=== PATIENT | female | born 1975 | race Caucasian/White ===

== ENCOUNTER 2018-04-22 10:13 | Emergency (ER) | payer OTHER ==
[~2018-04-22] VITALS: Ht 160 cm; Wt 77.1 kg
[2018-04-22] MEDS ORDERED: LEVOTHYROXINE88 MCG PO ×2 (10:24)
[2018-04-22] MEDS ORDERED: ESTRACE1 MG PO ×2 (10:25)
[2018-04-22] MEDS ORDERED: CITALOPRAM HBR40 MG PO ×2 (10:25)
[2018-04-22] MEDS ORDERED: PERCOCET 7.5-31 EACH PO ×2 (10:51)
[2018-04-23] MEDS ORDERED: NORCO 7.5-3251 EACH PO ×2 (17:22)
== END 2018-04-22 11:10 | disposition home or self-care (01) ==
LOC: ED 10:13
DX: S82.841A Displaced bimalleolar fracture of right lower leg, initial encounter for closed fracture (principal); F17.200 Nicotine dependence, unspecified, uncomplicated; E03.9 Hypothyroidism, unspecified; Z79.899 Other long term (current) drug therapy; W19.XXXA Unspecified fall, initial encounter
CPT/HCPCS: 73610; 99283

== ENCOUNTER 2018-04-24 13:35 | Day surgery (SDC) | payer OTHER ==
[~2018-04-24] VITALS: Ht 160 cm; Wt 77.1 kg
[~2018-04-24 13:35] MED LIST: CITALOPRAM HBR40 MG PO; ESTRACE1 MG PO; LEVOTHYROXINE88 MCG PO; NORCO 7.5-3251 EACH PO; PERCOCET 7.5-31 EACH PO
[2018-04-24] MEDS ORDERED: NORCO 10-325 T1 EACH PO ×2 (16:20)
--- NOTE | 2018-04-24 16:23 | NUR ---
04/24/18 1623 Nai Dan 1550 PT ARRIVED IN PACU SLEEPY C/O R ANKLE PAIN. ANESTHESIA GAVE DILAUDID IV TO PT. 1600 OXYGEN REMOVED. SATS 95% ON RA. ENCOURAGED PT TO COUGH AND DEEP BREATH. 1610 O2 SATS 88-90% ON RA. O2 AT 2L VIA NC WITH SATS RANGING FROM 90-98%. 1618 DILAUDID 0.5MG GIVEN IVP FOR 6/10 R ANKLE PAIN. EATING ICE CHIPS.
--- NOTE | 2018-04-24 16:38 | NUR ---
PATIENT IN ROOM 11, SITTING UP AND EATING ICE CHIPS. PATIENT RATES RIGHT LEG PAIN 3/10. PATIENT USING INCENTIVE SPIROMETER WITH GOOD RETURN DEMONSTRATION. PATIENT IS 100% ON ROOM AIR. PATIENT HAS OCCASIONAL DESATS INTO HIGH 80'S, ENCOURAGED TO USE I/S. PATIENT DENIES WANTING PAIN MEDICATION OR SOLID FOOD. PATIENT PUT BACK ON 1L OF OXYGEN.
--- NOTE | 2018-04-24 17:09 | NUR ---
PATIENT ON ROOM AIR, USING INCENTIVE SPIROMETER. O2 SATS RANGE FROM 91-100%. PATIENT REPORTS RIGHT ANKLE PAIN MINIMAL.
--- NOTE | 2018-04-25 09:55 | OR ---
[facility] [address] [place], [place] [address] Signed DATE OF OPERATION: 04/24/2018 SURGEON: Kevin Shah MD PREOPERATIVE DIAGNOSIS: Trimalleolar fracture subluxation right ankle. POSTOPERATIVE DIAGNOSIS: Trimalleolar fracture subluxation right ankle. PROCEDURE: Open reduction and internal fixation with fixation of the fibula and the medial malleolar fragment. ANESTHESIA: General. SPECIMENS: There were no specimens. COMPLICATIONS: None. TOURNIQUET TIME: Tourniquet time was about 46 minutes. WHAT WAS DONE: The patient was taken to the operating room, placed on operating table in supine position. After anesthesia was induced and airway secured, right lower extremity was positioned, prepped, and draped in a routine sterile fashion. Beginning laterally, straight lateral approach was made to the distal fibula. Skin and subcutaneous tissue were divided sharply and the deep fascia was incised in line with the skin incision. No additional dissection was actually required. Fracture site was gently irrigated and was then closed and held in a reduced fashion with a small bone clamp. Happy with the alignment position on fluoroscopy, was fixed with a single interfragmentary lag screw, and then augmented with an eight hole 1/3 semi tubular posterolateral buttress plate. This gave us an excellent reconstruction on the lateral side. We then proceeded medially where we were going to attempt to fix the medial fragment through a small stab incision, but were unable to get a satisfactory reduction percutaneously. We therefore enlarged stab incision into a lightening bolt incision. Skin was divided sharply. Electronically Signed By: KEVIN SHAH MD 04/25/18 0955 PATIENT NAME: DONALD HAINES OPERATIVE REPORT DATE OF : 73 REPORT #: [id number] PHYSICIAN: KEVIN SHAH MD PCP: NO PRIMARY CARE PHYSICIAN REPORT IS CONFIDENTIAL AND NOT TO BE RELEASED WITHOUT AUTHORIZATION [facility] [address] [place], [place] [address] Signed Subcutaneous tissue was bluntly spread. We were able to identify the fracture site reduce it anatomically, hold with a clamp, and then temporarily held it with a 1.6 K-wire and then fix it with a 3.5 mm screw placed in a lag fashion. The fragment appeared tentative enough that we did not attempt to place a 2nd screw through the medial fragment for fear of fragmenting the medial malleolar fragment. The wound was gently irrigated and both incisions were closed in a standard fashion. Sterile dressings were applied over which a well-padded bulky dressing was placed along with a CAM walker boot. The patient was awakened to recovery room where she arrived in stable condition. Counts were correct and antibiotic protocols were followed. Kevin Shah MD [facility]/MODL /[id number] Copies: ~ Electronically Signed By: KEVIN SHAH MD 04/25/18 0955 PATIENT NAME: DONALD HAINES OPERATIVE REPORT DATE OF : 73 REPORT #: [id number] PHYSICIAN: KEVIN SHAH MD PCP: NO PRIMARY CARE PHYSICIAN REPORT IS CONFIDENTIAL AND NOT TO BE RELEASED WITHOUT AUTHORIZATION
== END 2018-04-24 17:45 | disposition home or self-care (01) ==
LOC: OPS 13:35 → DS 13:35 → OPS 13:45
PROVIDERS: Orthopaedic Surgery
PROC: 0QSG04Z Reposition Right Tibia with Internal Fixation Device, Open Approach (ICD-10-PCS; 2018-04-24)
PROC: 0QSJ04Z Reposition Right Fibula with Internal Fixation Device, Open Approach (ICD-10-PCS; principal; 2018-04-24 13:45)
DX: S82.851A Displaced trimalleolar fracture of right lower leg, initial encounter for closed fracture (principal); E03.9 Hypothyroidism, unspecified; F17.210 Nicotine dependence, cigarettes, uncomplicated; N80.9 Endometriosis, unspecified; Z79.899 Other long term (current) drug therapy; X58.XXXA Exposure to other specified factors, initial encounter
CPT/HCPCS: 01480; 64445; 73600; 76942; C1713; J1100; J1170; J1885; J2405; J2704; J2795; J3010; J7120

== ENCOUNTER 2018-04-26 08:51 | Emergency (ER) | payer OTHER ==
[~2018-04-26] VITALS: Ht 160 cm; Wt 77.1 kg
[~2018-04-26 08:51] MED LIST changes: +NORCO 10-325 T1 EACH PO
[2018-04-26] MEDS ORDERED: OXYCODON-ACETA1 EAC2 PO (09:07)
[2018-04-26] MEDS ORDERED: ONDANSETRON ODT8 MG PO (09:52)
[2018-04-26] MEDS ORDERED: KETOROLAC TROME10 MG PO (09:54)
== END 2018-04-26 10:06 | disposition home or self-care (01) ==
LOC: ED 08:51
DX: M96.830 Postprocedural hemorrhage of a musculoskeletal structure following a musculoskeletal system procedure (principal); E03.9 Hypothyroidism, unspecified; F17.200 Nicotine dependence, unspecified, uncomplicated; Z79.899 Other long term (current) drug therapy; Z79.890 Hormone replacement therapy
CPT/HCPCS: 96374; 96375; 99283; J1170; J1885; J2405